=== PATIENT | male | born 1985 | race Caucasian/White ===

== ENCOUNTER 2022-02-15 01:02 | Day surgery (SDC) | payer OTHER, SELFPAY ==
[2022-02-11 09:20] VITALS: BMI 37.3
--- NOTE | 2022-02-11 09:30 | PC.NURSE ---
Report to the Outpatient Waiting Room, entrance under the green pavilion located off [facility], at time 1000 on date 02/15/22_. Planned Procedure Time: 1200_. Time changes happen often and if your time is changed the preop area will call you the afternoon before. - You and your visitor will be asked to self-screen and do not enter if you have any COVID symptoms. - We encourage only one visitor and NO visitors under age 16 are allowed at this time. Your visitor will receive communication by the phone number that is given day of service. - The patient visitor is requested to social distance or may leave the building when not with patient due to restrictions. - A mask is required within the hospital. Patients may have clear liquids (water, carbonated beverages, clear teas, apple juice) until 3 hours prior to surgery with a maximum of 20 ounces. - No food from midnight until time of surgery - Infants may have breast milk until 4 hours before surgery, infant formula 6 hours prior to surgery. - Children will be allowed to drink immediately following surgery. If applicable, please bring a bottle or sippy cup to assist with drinking. Juice, water, soda, and popsicles are readily available. For infants on formula, please bring formula the day of surgery. Pacifiers are allowed. Take the following medications with a SIP of water the morning of surgery: NONE Medications to discontinue per physician ____VITAMIN Date to take last dose 02/12/22____ Please no make-up, nail lao, hairspray, perfume, deodorant, or body powder the day of surgery. No jewelry (including any body piercings) or valuables the day of surgery, leave them at home. Please take a shower or bath the night before, or the morning of, surgery with an antibacterial soap. Wear comfortable, loose fitting clothing. Children are encouraged to wear pajamas. - Jewelry must be removed prior to entering the operating room. Rings and piercings that are not removed may be cut off. - The hospital will not accept responsibility for valuables. - Please leave all valuables, including medications, at home the day of surgery. If you are going home after surgery, a licensed patient transportation driver must drive you home. - NO public transportation without another adult. - We recommend that an adult stay with you for 24 hours following discharge. - We also recommend that you do not drive, make important decision, drink alcoholic beverages, or take any drugs that were not prescribed by your health care provider for at least 24 hours after your discharge time. For Pediatric surgeries, we recommend two adults accompany the child home. Follow any additional instructions given to you from your surgeon. If you or anyone in your household have experienced Covid symptoms in the past week, please notify your surgeon or the nurse liaison at the phone number below for possible testing. Telephone instructions given to __PATIENT_and asked if any additional questions and then verbalized understanding. Patient advised to call surgeon office or pre surgery nurse liaison [phone] if any additional questions.
--- NOTE | 2022-02-14 14:37 | P.PNAN_ITS ---
Anes - Initial Pre Proc Eval Procedure: Operation Date: 02/15/22 12:00 Proposed Procedures p Right Tarsal Tunnel Release - Ancelmo Poole DPM Date/Time: 02/14/22 14:37 Surgeon: Ancelmo Poole DPM Pre Op Diagnosis: Rt Tarsal Tunnel Patient Data Age: 36 Gender: M Height: 1.78 m Weight: 118 kg Allergies Allergy/AdvReac Type Severity Reaction Status Date / Time No Known Allergies Allergy Verified 02/11/22 09:26 Home Medications Medication Instructions Recorded Confirmed Type cetirizine 10 mg tablet (Zyrtec) 10 mg PO DAILY 02/11/22 02/15/22 History cholecalciferol (vitamin D3) 50 50 mcg PO DAILY 02/11/22 02/15/22 History mcg (2,000 unit) tablet (Vitamin D3) dextroamphetamine-amphetamine 20 20 mg PO DAILY 02/11/22 02/15/22 History mg tablet (Adderall) montelukast 10 mg tablet 10 mg PO DAILY 02/11/22 02/15/22 History (Singulair) Patient hx anesthesia problems: none Family hx anesthesia problems: none Results Review: All pre-operative results and documents have been reviewed as part of the pre- operative evaluation. [facility] Past Medical History Medical History (Updated 02/14/22 @ 14:38 by Wilfrido Sellers MD) Asthma Obesity Social History Social History Smoking status: Never smoker Alcohol intake: current Alcohol use details: 1-2 PER MONTH Living arrangements: with family Anes - Eval Final PreProcedure Day of Procedure 02/14/22 14:37 Patient weight: obese Heart: regular rate and rhythm Lungs: clear to auscultation and normal air movement Airway: Mallampati scale class II Neurological: alert and oriented Last oral intake: >/= 8 hours ASA classification: II Emergent: no Anesthetic plan: proceed Anesthesia type and monitoring: general GIVS and LMA Results Review: All pre-operative results and documents have been reviewed as part of the pre- operative evaluation. Informed Consent: The patient's anesthetic plan and its attendant risks and benefits were discussed with the patient/family/POA. Questions were solicited and answers provided to the satisfaction of the patient/family/POA.
[2022-02-15] VITALS (8 sets, daily range): BP systolic 127–149; BP diastolic 77–104; PULSE 70–94; RESP 10–16; TEMP 36.7–36.9; O2SAT 97–100
[2022-02-15] MEDS: LACTATED RINGERS 1,000 ML 30 ML IV CONT (10:58)
--- NOTE | 2022-02-15 11:55 | WPDHPUPDATE1 ---
History and Physical Update Update Date/Time: 02/15/22 11:55 History and Physical has been reviewed, including an updated exam of the patient. There are NO changes in the patient's condition. Risks, benefits, and alternatives have been discussed and questions answered. Patient agrees to proceed with procedure.
[2022-02-15] MEDS: ceFAZolin 2 GM/D5W 50 ML 2 GM/50 ML BAG IVPB (12:11)
[2022-02-15] MEDS: BUPIVACAINE HCL 0.5% PF 30 ML VIAL INFILTRATE (12:27)
[2022-02-15] MEDS: NEOMYCIN/POLYMYXIN/BACITRACIN OINTMENT 15 GM TUBE 1 APPLIC TOPICAL (12:28)
--- NOTE | 2022-02-15 12:52 | P.OPB_ITS ---
Procedure Note - Brief Procedure Note - Brief Date of procedure: 02/15/22 Pre-op diagnosis: Rt Tarsal Tunnel Rt tarsal tunnel Procedure performed: Tarsal tunnel release right Description of procedure: Under monitored sedation the patient was brought into the operating room and placed on the operating table in a supine position. Following administration of general anesthesia the foot was then scrubbed, prepped, and draped in the usual aseptic manner. An Esmark bandage was used to exsanguinate the patients right foot and ankle. Tourniquet was inflated to 300mm. Attention was directed to the medial aspect of the ankle posterior to medial malleolus. A linear incision made over the tarsal tunnel. It was deepened using blunt dissection with care being taken to identify and retract all vital and neurovascular structures. The tarsal tunnel was identified and released as was then origin of the adductor hallucis muscle. The wound was flushed with copious amounts of sterile normal saline and then skin was reappr oximated and coapted using 5-0 vicryl. The wound was then covered with a dry sterile compressive dressing consisting of steristrips, antibiotic ointment, Adaptic, 4 x 4?s, Zane and Coban. Ankle tourniquet was deflated and prompt capillary refill response was noted to all digits of the left foot. Patient tolerated procedure and anesthesia well. Transferred to the recovery room with vital signs stable and neurovascular status intact to all digits of the right foot. Following a period of post-operative monitoring the patient will be discharged home with written and oral post-operative instructions. Implants: none Surgeon: Ancelmo Poole DPM Signal Repairer: none Pathology: None sent Complications: No immediate complications Condition: Stable Disposition: PACU
--- NOTE | 2022-02-15 14:55 | SUR.PHASEII ---
BOOT PLACED ON RIGHT FOOT/LOWER LEG.
== END 2022-02-15 14:56 | disposition home or self-care (01) ==
PROVIDERS: Visit Provider Podiatrist Foot & Ankle Surgery
PROC: (CPT 28035; principal; 2022-02-15 12:00)
DX: G57.51 Tarsal tunnel syndrome, right lower limb (principal); J45.909 Unspecified asthma, uncomplicated; E66.9 Obesity, unspecified; Z68.37 Body mass index [BMI] 37.0-37.9, adult
CPT/HCPCS: 28035; A9270; J0690; J1100; J1170; J1885; J2250; J2704; J3010; J7120